=== PATIENT | male | born 1970 | race African-American/Black ===

== ENCOUNTER 2021-02-09 08:41 | Emergency (ER) | payer SELFPAY ==
[~2021-02-09] VITALS: Ht 170.2 cm; Wt 59.0 kg
[2021-02-09] MEDS ORDERED: SODIUM CHLORIDE 0.9% 1,000 ML IV ONE (09:30)
[2021-02-09] MEDS ORDERED: MetFORMIN HCL 500 MG TABLET PO ONE (10:45)
[2021-02-09 11:44] VITALS: BP 102/23
[2021-02-09 11:46] LABS: GLUCOMETER DEV NAME(LOC) ERT.5; GLUCOSE,POINT OF CARE 271 MG/DL (70-110)
== END 2021-02-09 12:46 | disposition home or self-care (01) ==
LOC: EDUNIT# 08:41 → EMS 08:41
DX: E11.65 Type 2 diabetes mellitus with hyperglycemia (principal); S09.90XA Unspecified injury of head, initial encounter; X58.XXXA Exposure to other specified factors, initial encounter; Y93.89 Activity, other specified; Y92.89 Other specified places as the place of occurrence of the external cause; Y99.8 Other external cause status
CPT/HCPCS: 36415; 70450; 82962; 83036; 96360; 99284; J7030

== ENCOUNTER 2021-06-19 12:52 | Inpatient (IN) | payer MEDICAID ==
[~2021-06-19] VITALS: Ht 170.2 cm; Wt 52.0 kg
[2021-06-19 14:11] LABS: GLUCOMETER DEV NAME(LOC) ERT.5; GLUCOSE,POINT OF CARE 518 MG/DL (70-110)
[2021-06-19] MEDS ORDERED: SODIUM CHLORIDE 0.9% 1,000 ML IV ONE ×2 (14:15→16:30)
[2021-06-19 14:42] LABS: BASOPHILS % (AUTO) 0.5 % (0.0-2.0); EOSINOPHILS % (AUTO) 0.1 % (1.0-6.0); HEMATOCRIT 21.2 % (41-53); HEMOGLOBIN 7.2 g/dL (13.5-17.5); LYMPHOCYTES # (AUTO) 0.9 K/uL (1.0-4.8); LYMPHOCYTES % (AUTO) 28.2 % (22.0-44.0); MEAN CORPUSCULAR HEMOGLOBIN 34.4 pg (26.0-34.0); MEAN CORPUSCULAR HGB CONC 33.9 G/dL (31.0-37.0); MEAN CORPUSCULAR VOLUME 102 fL (80-100); MONOCYTES # (AUTO) 0.5 K/uL (0.1-1.0); MONOCYTES % (AUTO) 15.6 % (2.0-9.0); NEUTROPHILS # (AUTO) 1.8 K/uL (1.8-7.7); NEUTROPHILS % (AUTO) 55.6 % (40.0-70.0); PLATELET COUNT (AUTO) 199 K/uL (150-450); RED BLOOD CELL COUNT(AUTO) 2.09 MIL/uL (4.50-5.90)
[2021-06-19 15:00] LABS: ALANINE AMINOTRANSFERASE 84 U/L (12-78); ALBUMIN 2.5 g/dL (3.4-5.0); ALKALINE PHOSPHATASE 475 U/L (46-116); ANION GAP 10 mmol/L (8-16); ASPARTATE AMINOTRANSFERASE 102 U/L (15-37); BILIRUBIN,TOTAL 2.4 mg/dL (0.1-1.0); CALCIUM, TOTAL 8.5 mg/dL (8.8-10.5); CARBON DIOXIDE 28 mmol/L (22-29); CHLORIDE 94 mmol/L (98-107); CREATININE 0.98 mg/dL (0.60-1.30); GLOMERULAR FILTR. RATE CALC > 60 mL/min (>60); SODIUM SERUM 132 mmol/L (136-145); TOTAL PROTEIN, SERUM 6.6 g/dL (6.4-8.2); UREA NITROGEN, BLOOD 5 mg/dL (7-18)
[2021-06-19 15:01] LABS: COVID AG,FIA SOURCE NASOPHARYNGEAL
[2021-06-19 15:06] LABS: GLUCOSE,RANDOM 500 mg/dL (70-110)
[2021-06-19] MEDS ORDERED: POTASSIUM CHLORIDE 20 MEQ ER TABLET PO ONE (15:45)
[2021-06-19] MEDS ORDERED: INSULIN REGULAR, HUMAN 100 UNITS/ML IVP ONE (15:45)
[2021-06-19 15:51] LABS: GLUCOMETER DEV NAME(LOC) ERT.5; GLUCOSE,POINT OF CARE 414 MG/DL (70-110)
[2021-06-19] MEDS ORDERED: POTASSIUM CHL 10 MEQ/WATER 50 ML IV PRN (16:30)
[2021-06-19] MEDS ORDERED: MAGNESIUM SULFATE 4 GM/WATER 100 ML IV PRN (16:30)
[2021-06-19] MEDS ORDERED: MAGNESIUM OXIDE 400 MG TABLET PO PRN (16:30)
[2021-06-19] MEDS ORDERED: DEXTROSE 50%-WATER 25 GM/50 ML SYRINGE IVP PRN (16:30)
[2021-06-19] MEDS ORDERED: MAGNESIUM SULFATE 2 GM/WATER 50 ML IV PRN (16:30)
[2021-06-19] MEDS ORDERED: ONDANSETRON HCL 4 MG/2 ML VIAL IVP PRN (16:30)
[2021-06-19] MEDS ORDERED: MAGNESIUM SULFATE 2 GM, MVI, ADULT NO.1 WITH VIT K 10 ML, THIAMINE 100 MG, FOLIC ACID 1... IV ONE ×5 (16:30)
[2021-06-19] MEDS ORDERED: POTASSIUM CHLORIDE 20 MEQ ER TABLET PO PRN (16:30)
[2021-06-19 16:49] LABS: INR 1.2 (0.9-1.1); PROTHROMBIN TIME 12.3 SEC (9.4-11.6)
[2021-06-19 16:50] LABS: GLUCOMETER DEV NAME(LOC) ERT.5; GLUCOSE,POINT OF CARE 341 MG/DL (70-110)
[2021-06-19 17:41] LABS: GLUCOMETER DEV NAME(LOC) ERT.5; GLUCOSE,POINT OF CARE 179 MG/DL (70-110)
[2021-06-19 19:06] LABS: GLUCOMETER DEV NAME(LOC) ERT.5; GLUCOSE,POINT OF CARE 98 MG/DL (70-110)
[2021-06-19] MEDS: HEPARIN SODIUM,PORCINE 5,000 UNITS/ML VIAL SQ SCH (20:38)
[2021-06-19] MEDS: INSULIN GLARGINE,HUM.REC.ANLOG 100 UNITS/ML SQ SCH (20:41)
[2021-06-19] MEDS: INSULIN LISPRO 100 UNITS/ML SQ PRN (20:42)
[2021-06-19 20:45] LABS: GLUCOSE,POINT OF CARE 221 MG/DL (70-110)
[2021-06-19] MEDS: DOCUSATE SODIUM 100 MG CAPSULE PO SCH (20:50)
[2021-06-20] VITALS (19 sets, daily range): BP systolic 73–173; BP diastolic 48–96
[2021-06-20] MEDS ORDERED: SODIUM CHLORIDE 0.9% 500 ML IV ONE ×2 (02:23→02:45)
[2021-06-20 06:08] LABS: EOSINOPHILS % (AUTO) 0.4 % (1.0-6.0); LYMPHOCYTES # (AUTO) 1.1 K/uL (1.0-4.8); LYMPHOCYTES % (AUTO) 31.3 % (22.0-44.0); MEAN CORPUSCULAR HEMOGLOBIN 34.6 pg (26.0-34.0); MEAN CORPUSCULAR HGB CONC 33.9 G/dL (31.0-37.0); MEAN CORPUSCULAR VOLUME 102 fL (80-100); MONOCYTES # (AUTO) 0.6 K/uL (0.1-1.0); MONOCYTES % (AUTO) 17.6 % (2.0-9.0); NEUTROPHILS # (AUTO) 1.7 K/uL (1.8-7.7); NEUTROPHILS % (AUTO) 49.7 % (40.0-70.0); PLATELET COUNT (AUTO) 225 K/uL (150-450); RED BLOOD CELL COUNT(AUTO) 1.98 MIL/uL (4.50-5.90)
[2021-06-20 06:17] LABS: HEMATOCRIT 20.2 % (41-53); HEMOGLOBIN 6.8 g/dL (13.5-17.5)
[2021-06-20 06:37] LABS: ANION GAP 11 mmol/L (8-16); CALCIUM, TOTAL 7.6 mg/dL (8.8-10.5); CARBON DIOXIDE 26 mmol/L (22-29); CHLORIDE 105 mmol/L (98-107); CREATININE 0.62 mg/dL (0.60-1.30); GLOMERULAR FILTR. RATE CALC > 60 mL/min (>60); GLUCOSE,RANDOM 121 mg/dL (70-110); POTASSIUM 3.4 mmol/L (3.5-5.1); SODIUM SERUM 142 mmol/L (136-145); UREA NITROGEN, BLOOD 5 mg/dL (7-18)
[2021-06-20] MEDS: DOCUSATE SODIUM 100 MG CAPSULE PO SCH ×2 (08:31→21:44)
[2021-06-20] MEDS: MULTIVITAMINS WITH MINERALS, THERAPEUTIC TABLET PO SCH (08:31)
[2021-06-20] MEDS: FAMOTIDINE 20 MG TABLET PO SCH (08:31)
[2021-06-20] MEDS: ACETAMINOPHEN 325 MG TABLET PO PRN ×2 (08:31→21:58)
[2021-06-20] MEDS: HEPARIN SODIUM,PORCINE 5,000 UNITS/ML VIAL SQ SCH (08:32)
[2021-06-20] MEDS: INSULIN GLARGINE,HUM.REC.ANLOG 100 UNITS/ML SQ SCH ×2 (08:34→21:46)
[2021-06-20 09:13] LABS: HEMATOCRIT 13.5 % (41-53); HEMOGLOBIN 4.5 g/dL (13.5-17.5)
[2021-06-20] MEDS ORDERED: FUROSEMIDE 20 MG/2 ML VIAL IVP ONE (09:45)
[2021-06-20] MEDS ORDERED: DiphenhydrAMINE HCL 50 MG/ML VIAL IVP ONE (09:45)
[2021-06-20] MEDS ORDERED: SODIUM CHLORIDE 0.9% 250 ML IV ONE (10:46)
[2021-06-20] MEDS: GABAPENTIN 100 MG CAPSULE PO SCH ×2 (15:20→21:44)
[2021-06-20 21:20] LABS: HEMATOCRIT 33.6 % (41-53); HEMOGLOBIN 11.4 g/dL (13.5-17.5)
[2021-06-20] MEDS: INSULIN LISPRO 100 UNITS/ML SQ PRN (21:48)
[2021-06-21] VITALS (9 sets, daily range): BP systolic 84–115; BP diastolic 53–88
[2021-06-21] MEDS ORDERED: SODIUM CHLORIDE 0.9% 500 ML IV ONE (00:15)
[2021-06-21 02:27] LABS: APPEARANCE,URINE CLEAR (CLEAR); GLUCOSE, URINE (UA) >=1000 mg/dL (NEGATIVE); KETONES,URINE NEGATIVE (NEGATIVE); LEUKOCYTE ESTERASE ,URINE NEGATIVE (NEGATIVE); NITRATE,URINE NEGATIVE (NEGATIVE); OCCULT BLOOD,URINE NEGATIVE (NEGATIVE); PH,URINE 5.5 (5.0-8.0); PROTEIN,URINE TRACE mg/dL (NEGATIVE); SPECIFIC GRAVITIY, URINE 1.035 (1.003-1.030)
[2021-06-21 02:28] LABS: BILIRUBIN,URINE SMALL (NEGATIVE)
[2021-06-21 02:35] LABS: BACTERIA,URINE None Seen /HPF (None Seen); RBC,URINE 0-2 /HPF (0-2); WBC,URINE 0-2 /HPF (0-5)
[2021-06-21] MEDS: ACETAMINOPHEN 325 MG TABLET PO PRN (06:10)
[2021-06-21 06:21] LABS: GLUCOMETER DEV NAME(LOC) 5N.3; GLUCOSE,POINT OF CARE 118 MG/DL (70-110)
[2021-06-21 06:21] LABS: GLUCOMETER DEV NAME(LOC) 5N.3; GLUCOSE,POINT OF CARE 216 MG/DL (70-110)
[2021-06-21 07:36] LABS: BASOPHILS % (AUTO) 1.1 % (0.0-2.0); EOSINOPHILS % (AUTO) 0.7 % (1.0-6.0); HEMATOCRIT 34.4 % (41-53); HEMOGLOBIN 11.8 g/dL (13.5-17.5); LYMPHOCYTES # (AUTO) 1.2 K/uL (1.0-4.8); LYMPHOCYTES % (AUTO) 27.4 % (22.0-44.0); MEAN CORPUSCULAR HEMOGLOBIN 33.5 pg (26.0-34.0); MEAN CORPUSCULAR HGB CONC 34.3 G/dL (31.0-37.0); MEAN CORPUSCULAR VOLUME 98 fL (80-100); MONOCYTES # (AUTO) 0.8 K/uL (0.1-1.0); MONOCYTES % (AUTO) 18.5 % (2.0-9.0); NEUTROPHILS # (AUTO) 2.2 K/uL (1.8-7.7); NEUTROPHILS % (AUTO) 52.3 % (40.0-70.0); PLATELET COUNT (AUTO) 260 K/uL (150-450); RED BLOOD CELL COUNT(AUTO) 3.52 MIL/uL (4.50-5.90); RED CELL DISTRIBUTION WIDTH 16.4 % (11.5-14.5)
[2021-06-21 07:48] LABS: ANION GAP 7 mmol/L (8-16); CALCIUM, TOTAL 8.2 mg/dL (8.8-10.5); CARBON DIOXIDE 20 mmol/L (22-29); CHLORIDE 105 mmol/L (98-107); CREATININE 0.66 mg/dL (0.60-1.30); GLOMERULAR FILTR. RATE CALC > 60 mL/min (>60); GLUCOSE,RANDOM 102 mg/dL (70-110); PHOSPHORUS 3.4 mg/dL (2.5-4.9); POTASSIUM 3.7 mmol/L (3.5-5.1); SODIUM SERUM 132 mmol/L (136-145); UREA NITROGEN, BLOOD 9 mg/dL (7-18)
[2021-06-21] MEDS: FAMOTIDINE 20 MG TABLET PO SCH (09:59)
[2021-06-21] MEDS: GABAPENTIN 100 MG CAPSULE PO SCH ×2 (09:59→20:28)
[2021-06-21] MEDS: THIAMINE 100 MG TABLET PO SCH (10:00)
[2021-06-21] MEDS: DOCUSATE SODIUM 100 MG CAPSULE PO SCH ×2 (10:00→20:28)
[2021-06-21] MEDS: MULTIVITAMINS WITH MINERALS, THERAPEUTIC TABLET PO SCH (10:01)
[2021-06-21] MEDS: INSULIN GLARGINE,HUM.REC.ANLOG 100 UNITS/ML SQ SCH ×2 (10:03→20:29)
[2021-06-21] MEDS: INSULIN LISPRO 100 UNITS/ML SQ PRN (12:39)
[2021-06-21] MEDS ORDERED: SODIUM CHLORIDE 0.9% 1,000 ML IV ONE (13:15)
[2021-06-21] MEDS: MIDODRINE HCL 5 MG TABLET PO SCH ×2 (14:27→20:28)
[2021-06-21] MEDS: APIXABAN 5 MG TABLET PO SCH ×2 (14:27→20:28)
[2021-06-21 18:17] LABS: GLUCOMETER DEV NAME(LOC) 5S.1B; GLUCOSE,POINT OF CARE 66 MG/DL (70-110)
[2021-06-21 18:17] LABS: GLUCOMETER DEV NAME(LOC) 5S.2B; GLUCOSE,POINT OF CARE 138 MG/DL (70-110)
[2021-06-21 18:17] LABS: GLUCOMETER DEV NAME(LOC) 5S.2B; GLUCOSE,POINT OF CARE 142 MG/DL (70-110)
[2021-06-21 21:30] LABS: GLUCOMETER DEV NAME(LOC) 5S.2B; GLUCOSE,POINT OF CARE 98 MG/DL (70-110)
[2021-06-22 04:07] VITALS: BP 115/77
[2021-06-22] MEDS: INSULIN LISPRO 100 UNITS/ML SQ PRN ×3 (06:47→20:22)
[2021-06-22 07:50] VITALS: BP 103/67
[2021-06-22] MEDS: DOCUSATE SODIUM 100 MG CAPSULE PO SCH ×2 (09:00→20:22)
[2021-06-22] MEDS: ACETAMINOPHEN 325 MG TABLET PO PRN (09:11)
[2021-06-22] MEDS: INSULIN GLARGINE,HUM.REC.ANLOG 100 UNITS/ML SQ SCH ×2 (09:11→20:23)
[2021-06-22] MEDS: MIDODRINE HCL 5 MG TABLET PO SCH ×2 (09:12→20:24)
[2021-06-22] MEDS: GABAPENTIN 100 MG CAPSULE PO SCH ×2 (09:12→20:21)
[2021-06-22] MEDS: APIXABAN 5 MG TABLET PO SCH ×2 (09:12→20:22)
[2021-06-22] MEDS: MULTIVITAMINS WITH MINERALS, THERAPEUTIC TABLET PO SCH (09:12)
[2021-06-22] MEDS: THIAMINE 100 MG TABLET PO SCH (09:12)
[2021-06-22] MEDS: FAMOTIDINE 20 MG TABLET PO SCH (09:12)
[2021-06-22 10:14] LABS: BASOPHILS % (AUTO) 0.7 % (0.0-2.0); EOSINOPHILS % (AUTO) 0.2 % (1.0-6.0); HEMATOCRIT 31.4 % (41-53); HEMOGLOBIN 10.7 g/dL (13.5-17.5); LYMPHOCYTES # (AUTO) 0.7 K/uL (1.0-4.8); LYMPHOCYTES % (AUTO) 17.7 % (22.0-44.0); MEAN CORPUSCULAR HEMOGLOBIN 33.1 pg (26.0-34.0); MEAN CORPUSCULAR VOLUME 97 fL (80-100); MONOCYTES # (AUTO) 0.8 K/uL (0.1-1.0); MONOCYTES % (AUTO) 18.1 % (2.0-9.0); NEUTROPHILS # (AUTO) 2.6 K/uL (1.8-7.7); NEUTROPHILS % (AUTO) 63.3 % (40.0-70.0); PLATELET COUNT (AUTO) 284 K/uL (150-450); RED BLOOD CELL COUNT(AUTO) 3.23 MIL/uL (4.50-5.90); RED CELL DISTRIBUTION WIDTH 16.4 % (11.5-14.5)
[2021-06-22 10:24] LABS: ANION GAP 9 mmol/L (8-16); CALCIUM, TOTAL 7.9 mg/dL (8.8-10.5); CARBON DIOXIDE 25 mmol/L (22-29); CHLORIDE 104 mmol/L (98-107); CREATININE 0.65 mg/dL (0.60-1.30); GLOMERULAR FILTR. RATE CALC > 60 mL/min (>60); GLUCOSE,RANDOM 149 mg/dL (70-110); POTASSIUM 3.6 mmol/L (3.5-5.1); SODIUM SERUM 138 mmol/L (136-145); UREA NITROGEN, BLOOD 10 mg/dL (7-18)
[2021-06-22 11:25] VITALS: BP 112/70
[2021-06-22 12:21] LABS: GLUCOMETER DEV NAME(LOC) 5N.3; GLUCOSE,POINT OF CARE 257 MG/DL (70-110)
[2021-06-22 12:25] LABS: GLUCOMETER DEV NAME(LOC) 5N.3; GLUCOSE,POINT OF CARE 129 MG/DL (70-110)
[2021-06-22 16:10] VITALS: BP 97/68
[2021-06-22 19:06] LABS: GLUCOMETER DEV NAME(LOC) 5S.2B; GLUCOSE,POINT OF CARE 310 MG/DL (70-110)
[2021-06-22 19:27] VITALS: BP 132/78
[2021-06-22 23:43] VITALS: BP 125/85
[2021-06-23 04:07] VITALS: BP 125/76
[2021-06-23 05:21] LABS: GLUCOMETER DEV NAME(LOC) 5S.1B; GLUCOSE,POINT OF CARE 190 MG/DL (70-110)
[2021-06-23] MEDS: INSULIN LISPRO 100 UNITS/ML SQ PRN ×3 (06:03→20:20)
[2021-06-23 07:57] VITALS: BP 100/74
[2021-06-23] MEDS: MIDODRINE HCL 5 MG TABLET PO SCH ×2 (08:45→20:18)
[2021-06-23] MEDS: GABAPENTIN 100 MG CAPSULE PO SCH ×2 (08:45→20:18)
[2021-06-23] MEDS: APIXABAN 5 MG TABLET PO SCH ×2 (08:45→20:18)
[2021-06-23] MEDS: DOCUSATE SODIUM 100 MG CAPSULE PO SCH ×2 (08:45→20:21)
[2021-06-23] MEDS: THIAMINE 100 MG TABLET PO SCH (08:46)
[2021-06-23] MEDS: FAMOTIDINE 20 MG TABLET PO SCH (08:46)
[2021-06-23] MEDS: MULTIVITAMINS WITH MINERALS, THERAPEUTIC TABLET PO SCH (08:46)
[2021-06-23] MEDS: INSULIN GLARGINE,HUM.REC.ANLOG 100 UNITS/ML SQ SCH ×2 (08:55→20:19)
[2021-06-23 09:16] LABS: GLUCOMETER DEV NAME(LOC) 5S.2B; GLUCOSE,POINT OF CARE 196 MG/DL (70-110)
[2021-06-23 11:44] VITALS: BP 111/72
[2021-06-23 12:21] LABS: GLUCOMETER DEV NAME(LOC) 5N.1C; GLUCOSE,POINT OF CARE 105 MG/DL (70-110)
[2021-06-23 15:55] VITALS: BP 128/99
[2021-06-23] MEDS ORDERED: GABA-1216 PO (16:01)
[2021-06-23] MEDS ORDERED: APIX5TAB PO (16:01)
[2021-06-23] MEDS ORDERED: THIA100T80 PO (16:01)
[2021-06-23] MEDS ORDERED: MIDO5TAB29 PO (16:01)
[2021-06-23] MEDS ORDERED: METF-1211 PO (16:02)
[2021-06-23 20:05] VITALS: BP 116/75
[2021-06-23 20:26] LABS: GLUCOMETER DEV NAME(LOC) 5N.1C; GLUCOSE,POINT OF CARE 111 MG/DL (70-110)
[2021-06-23 20:26] LABS: GLUCOMETER DEV NAME(LOC) 5N.1C; GLUCOSE,POINT OF CARE 201 MG/DL (70-110)
[2021-06-23 22:31] LABS: GLUCOMETER DEV NAME(LOC) 5N.1C; GLUCOSE,POINT OF CARE 277 MG/DL (70-110)
== END 2021-06-23 20:30 | disposition home or self-care (01) | DRG 663 ==
LOC: EMS 12:52 → ICU 16:29 → 5S 06-20 18:56
PROVIDERS: ADMIT Internal Medicine; ATTEND Internal Medicine
PROC: 30233N1 Transfusion of Nonautologous Red Blood Cells into Peripheral Vein, Percutaneous Approach (ICD-10-PCS; principal; 2021-06-20)
DX: D51.9 Vitamin B12 deficiency anemia, unspecified (principal); E43 Unspecified severe protein-calorie malnutrition; I82.403 Acute embolism and thrombosis of unspecified deep veins of lower extremity, bilateral; E11.649 Type 2 diabetes mellitus with hypoglycemia without coma; E11.40 Type 2 diabetes mellitus with diabetic neuropathy, unspecified; K70.9 Alcoholic liver disease, unspecified; D53.1 Other megaloblastic anemias, not elsewhere classified; E63.9 Nutritional deficiency, unspecified; E86.0 Dehydration; E87.6 Hypokalemia; Z20.822 Contact with and (suspected) exposure to COVID-19; Z79.899 Other long term (current) drug therapy; Z79.01 Long term (current) use of anticoagulants; Z68.1 Body mass index [BMI] 19.9 or less, adult
CPT/HCPCS: 70450; 71045; 80048; 80053; 81001; 82040; 82271; 82962; 83735; 84100; 84132; 85014; 85018; 85025; 85610; 86850; 86900; 86901; 86923; 87081; 93005; 93970; 99285; G0378; J1644; J1815; J3411; J3475; J3490; J7030; J7040; J7050; P9016; 36415-L1; 36415-TC